=== PATIENT | male | born 1975 | race Caucasian/White ===

== ENCOUNTER 2020-12-17 13:03 | Inpatient (IN) | payer OTHER ==
[~2020-12-17] VITALS: Ht 185.4 cm; Wt 99.8 kg
[2020-12-17 15:37] LABS: BASOPHILS ABSOLUTE AUTO 0.04 K/mm3 (0.00-0.23); BASOPHILS PERCENT AUTO 0 % (0-2); EOSINOPHILS PERCENT AUTO 1 % (0-6); Hematocrit 41.4 % (37.0-53.0); Hemoglobin 14.4 g/dL (13.5-17.5); IMMATURE GRAN ABSOLUTE AUTO 0.06 K/mm3 (0.00-0.10); IMMATURE GRAN PERCENT AUTO 0 % (0-1); LYMPHOCYTES ABSOLUTE AUTO 1.31 K/mm3 (0.84-5.20); LYMPHOCYTES PERCENT AUTO 10 % (21-46); MONOCYTES ABSOLUTE AUTO 0.96 K/mm3 (0.16-1.47); MONOCYTES PERCENT AUTO 7 % (4-13); Mean Corpuscular HGB 29.3 pg (26.0-34.0); Mean Corpuscular HGB Conc 34.8 g/dL (31.5-36.5); Mean Corpuscular Volume 84 fL (80-100); Mean Platelet Volume 10.9 fL (9.1-12.4); NEUTROPHILS ABSOLUTE AUTO 11.22 K/mm3 (1.96-9.15); NEUTROPHILS PERCENT AUTO 82 % (41-73); Platelet Count 197 K/mm3 (150-400); RDW Coefficient Variation 12.8 % (11.7-14.2); RDW Standard Deviation 39.4 fL (35.1-46.3); Red Blood Cell Count 4.92 M/mm3 (4.30-5.90); White Blood Cell Count 13.69 K/mm3 (4.00-11.30)
[2020-12-17 15:53] LABS: Alanine Aminotransfer (ALT/SGP 43 U/L (12-78); Albumin, Blood 4.3 g/dL (3.4-5.0); Albumin/Globulin Ratio 1.3 (0.8-1.8); Alk Phos 37 U/L (50-136); Anion Gap 3 mmol/L (6-16); Aspartate Aminotrans (AST/SGOT 39 U/L (12-37); Bilirubin, Total 1.7 mg/dL (0.1-1.0); Blood Urea Nitrogen 13 mg/dL (8-24); Bun/Creatinine Ratio 12.4 (12.0-20.0); CO2, Blood 27 mmol/L (21-32); Calcium, Blood 8.7 mg/dL (8.5-10.1); Chloride, Blood 106 mmol/L (98-108); Creatinine, Blood 1.05 mg/dL (0.60-1.20); Globulin, Blood 3.4 g/dL (2.2-4.0); Glomerular Filtration Rate >60 (60-); Glucose, Blood 96 mg/dL (70-99); Potassium, Blood 4.2 mmol/L (3.5-5.5); Sodium, Blood 136 mmol/L (136-145); Total Protein, Blood 7.7 g/dL (6.4-8.2)
--- NOTE | 2020-12-17 16:35 | NUR ---
PT ARRIVED TO UNIT FROM ED. TRANSFERRED PT TO BED FROM [facility] USING SLIDER SHEET. PT TOLERATED WELL. CUT OFF PT'S PANTS/UNDERWEAR AND ASSISTED INTO GOWN. PT HAS ABRASIONS SCATTERED ACROSS BACK AND SMALL ABRASION/BRUISING TO RLE. ORIENTED TO CALL LIGHT AND ROOM. CALL LIGHT WITHIN REACH. PROVIDED URINAL. TWO GUESTS AT BEDSIDE.
[2020-12-17 18:58] LABS: SARS-Cov-2 (COVID-19) PCR, MMC NEGATIVE (NEGATIVE)
--- NOTE | 2020-12-18 06:12 | NUR ---
PT VSS T/O NIGHT. LLE ELEVATED IN BED, SPLINT IN PLACE. PT REP NO CHANGES IN SENSATION; CAP REFILL WNL. PT WANTED TO LIMIT NARCOTICS, PAIN MGD CONSERVATIVELY PER PT REQ. PT NPO POST MIDNIGHT FOR PLAN FOR SURGERY THIS AM.
--- NOTE | 2020-12-18 08:05 | NUR ---
DR. APPLE AT BEDSIDE
--- NOTE | 2020-12-18 10:13 | NUR ---
PT TO SURGERY AT 09
--- NOTE | 2020-12-18 14:52 | NUR ---
PT BACK FROM OR AT 1430. PT A/OX4, DROWSY. PAIN 03/30; MED PER ORDER. MOTHER AT BEDSIDE.
--- NOTE | 2020-12-18 16:20 | NUR ---
SHIFT SUMMARY PT IS A/O X4. POST OP DAY #0 FROM L TIB/FIB REPAIR. SPLINT AND RAJI IN PLACE TO LLE. TOES PINK AND WARM WITH CAP REFILL OF 2 SEC. L LEG ELEVATED ON PILLOWS WITH ICE PACKS IN PLACE. PT RESTING AT THIS TIME, CALL LIGHT IN REACH, MOTHER AT BEDSIDE.
--- NOTE | 2020-12-19 05:26 | NUR ---
A/OX4. VSS ON RA. LABIAL DRESSING (KERLEX, ABDOMINAL PAD) CHANGED AFTER PT HAD BM. TYLENOL GIVEN FOR DISCOMFORT AFTER DRESSING CHANGE. PT REPOSITIONED TOLERATED. AMBULATED TO TOILET 1X W/ FWW. GAVIRIA IN PLACE W/ GOOD OUTPUT. DECLINED CPAP. PER PT, DOES NOT WEAR AT HOME. USING CALL LIGHT TO MAKE NEEDS KNOWN.
--- NOTE | 2020-12-19 05:47 | NUR ---
PATIENT A/OX4. VSS ON RA. PAIN MANAGED WELL W/ PRN PAIN MEDS. LEG ELEVATED ON PILLOWS, PT DENIES NUMBNESS/TINGLING. SLEEPING B/W CARE. USING URINAL. CALLING TO MAKE NEEDS KNOWN.
[2020-12-19] MEDS ORDERED: ASPI325 PO (07:58)
[2020-12-19] MEDS ORDERED: ROXICODONE5 MG PO (07:59)
--- NOTE | 2020-12-19 10:57 | NUR ---
DISCHARGE PT CLEARED PHYSICAL THERAPY THIS AM. MOTHER FILLED SCRIPT FOR CRUTCHES AND BROUGHT CRUTCHES IN BEFORE D/C. PAIN MANAGED WITH PO PAIN MEDICATIONS. PT FEELS COMFORTABLE DISCHARGING AND COMFORTABLE WITH THERAPY INSTRUCTIONS. DC INSTRUCTIONS PROVIDED PT PT; PT REPORTS UNDERSTANDING. IV DC'D WNL. SCRIPTS SENT WITH PT. PERSONAL BELONGINGS SENT HOME. PT ESCORTED TO VEHICLE VIA WHEELCHAIR BY R&D ENGINEER. MOTHER TO DRIVE PT HOME. PT DC'D AT 1045.
--- NOTE | 2020-12-19 13:28 | NUR ---
12/19/20 1328 Carri Martinez VERIFICATIONS: EDIT CHART.
== END 2020-12-19 10:54 | disposition home or self-care (01) | DRG 494 ==
LOC: ER 13:03 → SURS 13:04
PROVIDERS: Emergency Medicine; Orthopaedic Surgery; ADMIT Orthopaedic Surgery
PROC: 0QSH06Z Reposition Left Tibia with Intramedullary Internal Fixation Device, Open Approach (ICD-10-PCS; principal; 2020-12-18 11:00)
DX: S82.242A Displaced spiral fracture of shaft of left tibia, initial encounter for closed fracture (principal); S82.452A Displaced comminuted fracture of shaft of left fibula, initial encounter for closed fracture; S92.322A Displaced fracture of second metatarsal bone, left foot, initial encounter for closed fracture; Z20.822 Contact with and (suspected) exposure to COVID-19; F17.290 Nicotine dependence, other tobacco product, uncomplicated; Z90.49 Acquired absence of other specified parts of digestive tract; Z79.899 Other long term (current) drug therapy; V86.59XA Driver of other special all-terrain or other off-road motor vehicle injured in nontraffic accident, initial encounter
CPT/HCPCS: 29505; 71045; 73090; 73590; 80053; 84484; 85025; 93005; 93010; 96374-59; 96375-59; 96376; 97116; 97161; 97530; 99284-25; A9270; C1713; C1769; G0378; J0171; J0690; J1100; J1170; J1650; J1885; J2250; J2405; J2704; J3010; J7120; U0004